=== PATIENT | female | born 1955 | race Caucasian/White ===

== ENCOUNTER 2017-07-15 21:33 | Observation (INO) | payer BC ==
[2017-07-15] MEDS ORDERED: ASPIRIN 81 MG CHEWABLE TABLET PO ONE (22:05)
[2017-07-15] MEDS: NITROGLYCERIN 0.4MG SL TABLET #25 BTL SL PRN ×3 (22:18→22:28)
[2017-07-15 22:28] LABS: BASO % 0.8 % (0-6); EOS % 1.5 % (0-6); GRAN % 53.8 % (47-80); HEMATOCRIT 32.7 % (35.0-47.0); HEMOGLOBIN 10.9 gm/dl (11.6-16.0); LYMPH % 34.1 % (16-45); MEAN CELL VOLUME 101.6 fl (81-97); MEAN CORPUSCULAR HGB CONC 33.3 g/dl (32-36); MEAN PLATELET VOLUME 11.5 fl (7.4-10.4); MONO % 9.8 % (0-9); PLATELET COUNT 276 K/uL (130-400); RED BLOOD COUNT 3.22 M/uL (3.80-5.40); WHITE BLOOD COUNT W/O DIFF 6.6 K/uL (4.2-12.2)
[2017-07-15 22:33] LABS: MEAN CORPUSCULAR HEMOGLOBIN 33.8 pg (27-33)
[2017-07-15 22:46] LABS: ALB/GLOB RATIO 1.5 (1.1-1.8); ALBUMIN 4.2 g/dL (4.0-5.0); ALKALINE PHOSPHATASE 66 U/L (35-104); ALT/SGPT 16 U/L (<33); AST/SGOT 29 U/L (10.0-35.0); BLOOD UREA NITROGEN 24 mg/dL (6-20); CKMB 5.4 ng/mL (<3.77); CREATINE PHOSPHOKINASE 333 U/L (26-192); CREATININE 1.3 mg/dL (0.5-0.9); EST GLOMERULAR FILTRATION RATE 45 mL/min; GLUCOSE,RANDOM 126 mg/dL (74-109)
[2017-07-15 22:49] LABS: TROPONIN I < 0.30 ng/mL (0.00-0.300)
[2017-07-15] MEDS ORDERED: 0.9 % SODIUM CHLORIDE 1,000 ML BAG IV ONE (23:00)
--- NOTE | 2017-07-16 00:52 | Emergency Department Record ---
History of Present Illness - General Chief Complaint: Dizziness Stated Complaint: RUBIO/ BLURRED VISION,HEAYNESS IN CHEST Time Seen by Provider: 07/15/17 21:51 Source: Patient Mode of Arrival: Wheelchair Limitations: No limitations - History of Present Illness Initial Comments: pt mowed her lawn and then came in she house and developed chest heaviness, sob , nausea. she became lightheaded and thought she was going to pass out MD Complaint: Dizziness, Lightheadedness, Near syncope Onset/Timin -: Hour(s) Timing: Sudden onset Description: Difficulty walking, Lightheadedness, Nausea, Off-balance Worsens With: Movement Associated Symptoms: Chest pain, Shortness of breath - Robson Coma Scale Eye Response: (4) Open spontaneously Motor Response: (6) Obeys commands Verbal Response: (5) Oriented Robson Total: 15 - Symptoms of Stroke Symptom Onset Unknown: Yes Symptoms of stroke: Dizziness - Related Data Previous Rx's Medication Instructions Recorded Albuterol Sulfate [Ventolin Hfa] 1 - 2 puff IH Q6HR PRN #1 inhaler 08/01/14 Levofloxacin [Levaquin] 750 mg PO DAILY #10 tablet 08/01/14 Promethazine HCl/Codeine 5 ml PO QHS #120 syrup 08/01/14 [Promethazine-Codeine Syrup] Allergies Allergy/AdvReac Type Severity Reaction Status Date / Time bee pollen Allergy SHORTNESS Verified 07/15/17 21:38 OF BREATH thimerosal Allergy ITCHING Verified 07/15/17 21:38 Travel Screening - Travel/Exposure Within Last 30 Days Have you traveled within the last 30 days?: No - Travel Symptoms Symptom Screening: None Review of Systems Reviewed: No additional complaints except as noted below Constitutional: Reports: As per HPI. Denies: Chills, Fever, Malaise, Night sweats, Weakness, Weight change Eyes: Reports: As per HPI. Denies: Eye discharge, Eye pain, Photophobia, Vision change ENT: Reports: As per HPI. Denies: Congestion, Dental pain, Ear pain, Epistaxis , Hearing loss, Throat pain Respiratory: Reports: As per HPI. Denies: Cough, Dyspnea, Hemoptysis, Stridor, Wheezes Cardiovascular: Reports: As per HPI. Denies: Arrhythmia, Chest pain, Dyspnea on exertion, Edema, Murmurs, Orthopnea, Palpitations, Paroxysmal nocturnal dyspnea, Rheumatic Fever, Syncope Endocrine: Reports: As per HPI. Denies: Fatigue, Heat or cold intolerance, Polydipsia, Polyuria Gastrointestinal: Reports: As per HPI. Denies: Abdominal pain, Constipation, Diarrhea, Hematemesis, Hematochezia, Melena, Nausea, Vomiting Genitourinary: Reports: As per HPI. Denies: Abnormal menses, Discharge, Dyspareunia, Dysuria, Frequency, Hematuria, Incontinence, Retention, Urgency Musculoskeletal: Reports: As per HPI. Denies: Arthralgia, Back pain, Gout, Joint swelling, Myalgia, Neck pain Skin: Reports: As per HPI. Denies: Bruising, Change in color, Change in hair/ nails, Lesions, Pruritus, Rash Neurological: Reports: As per HPI. Denies: Abnormal gait, Confusion, Headache, Numbness, Paresthesias, Seizure, Tingling, Tremors, Vertigo, Weakness Psychiatric: Reports: As per HPI. Denies: Anxiety, Auditory hallucinations, Depression, Homicidal thoughts, Suicidal thoughts, Visual hallucinations Hematological/Lymphatic: Reports: As per HPI. Denies: Anemia, Blood Clots, Easy bleeding, Easy bruising, Swollen glands Past Medical History - SOCIAL HISTORY Smoking Status: Former smoker Drug Use Detail:: Marijuana - RESPIRATORY Hx Respiratory Disorders: No - CARDIOVASCULAR Hx Cardio Disorders: Yes Hx Hypertension: Yes - NEURO Hx Neuro Disorders: Yes Hx Headaches: Yes - GI Hx GI Disorders: Yes Hx Reflux: Yes Hx Irritable Bowel: Yes - Hx Genitourinary Disorders: No - ENDOCRINE Hx Endocrine Disorders: No - MUSCULOSKELETAL Hx Musculoskeletal Disorders: Yes Hx Arthritis: Yes - PSYCH Hx Psych Problems: Yes Hx Depression: Yes - HEMATOLOGY/ONCOLOGY Hx Hematology/Oncology Disorders: No Family Medical History Any Significant Family History?: Yes Family Hx Comment (NOT TO BE USED IN PLACE OF ITEMS BELOW): IBS runs in the family Hx Cancer: Father Hx Seizures: Brother/Sister Physical Exam - General General Appearance: Alert, Oriented x3, Cooperative, Mild distress - Head Head exam: Normal inspection - Eye Eye exam: Normal appearance, PERRL, EOMI Pupils: Normal accommodation - ENT ENT exam: Normal exam, Mucous membranes moist, Normal external ear exam, Normal orophraynx Ear exam: Normal external inspection. negative: External canal tenderness Nasal Exam: Normal inspection. negative: Discharge, Sinus tenderness Mouth exam: Normal external inspection, Tongue normal Teeth exam: Normal inspection. negative: Dental caries Throat exam: Normal inspection. negative: Tonsillar erythema, Tonsillar exudate - Neck Neck exam: Normal inspection, Full ROM. negative: Tenderness - Respiratory Respiratory exam: Normal lung sounds bilaterally. negative: Respiratory distress - Cardiovascular Cardiovascular Exam: Regular rate, Normal rhythm, Normal heart sounds - GI/Abdominal GI/Abdominal exam: Soft, Normal bowel sounds. negative: Tenderness - Rectal Rectal exam: Deferred - exam: Deferred - Extremities Extremities exam: Normal inspection, Full ROM, Normal capillary refill. negative: Tenderness - Back Back exam: Reports: Normal inspection, Full ROM. Denies: Muscle spasm, Rash noted, Tenderness - Neurological Neurological exam: Alert, CN II-XII intact, Normal gait, Oriented X3 - Psychiatric Psychiatric exam: Normal affect, Normal mood - Skin Skin exam: Dry, Intact, Normal color, Warm Course Vital Signs 07/15/17 07/15/17 07/15/17 21:46 22:19 22:24 Temperature 98.0 F Pulse Rate Pulse Rate [ 77 93 H 80 Assistant Case Manager ] Respiratory 22 20 18 Rate Blood Pressure 150/93 [Left Arm] Blood Pressure 141/69 119/79 [Right Arm] Pulse Ox 100 99 94 L 07/15/17 07/15/17 07/15/17 22:25 22:29 23:34 Temperature Pulse Rate 84 Pulse Rate [ 80 74 Assistant Case Manager ] Respiratory 20 20 18 Rate Blood Pressure [Left Arm] Blood Pressure 117/73 130/78 [Right Arm] Pulse Ox 94 L 99 100 - Reevaluation(s) Reevaluation #1: 07/16/17 00:52 pt got better with ntg Medical Decision Making - Lab Data Result diagrams: 07/15/17 21:50 07/15/17 21:50 Lab Results 07/15/17 07/15/17 Range/Units 21:50 21:50 WBC 6.6 (4.2-12.2) K/uL RBC 3.22 L (3.80-5.40) M/uL Hgb 10.9 L (11.6-16.0) gm/dl Hct 32.7 L (35.0-47.0) % MCV 101.6 H (81-97) fl MCH 33.8 H (27-33) pg MCHC 33.3 (32-36) g/dl RDW 13.0 (11.5-14.5) % Plt Count 276 (130-400) K/uL MPV 11.5 H (7.4-10.4) fl Gran % 53.8 (47-80) % Lymphocytes % 34.1 (16-45) % Monocytes % 9.8 H (0-9) % Eosinophils % 1.5 (0-6) % Basophils % 0.8 (0-6) % Sodium 134 L (136-145) mmol/L Potassium 3.8 (3.4-4.5) mmol/L Chloride 96 L (98-107) mmol/L Carbon Dioxide 24.0 (22-29) mmol/L Anion Gap 14.0 (7-16) BUN 24 H (6-20) mg/dL Creatinine 1.3 H (0.5-0.9) mg/dL Estimated GFR 45 mL/min Random Glucose 126 H (74-109) mg/dL Calcium 9.1 (8.6-10.0) mg/dL Total Bilirubin 0.20 (0.2-1.0) mg/dL AST 29 (10.0-35.0) U/L ALT 16 (<33) U/L Alkaline Phosphatase 66 (35-104) U/L Creatine Kinase 333 H (26-192) U/L CK-MB (CK-2) 5.4 H (<3.77) ng/mL Troponin I < 0.30 (0.00-0.300) ng/mL Total Protein 7.0 (6.6-8.7) g/dL Albumin 4.2 (4.0-5.0) g/dL Globulin 2.8 (1.4-4.8) gm/dL Albumin/Globulin Ratio 1.5 (1.1-1.8) Disposition Disposition: Admit Clinical Impression: Chest heaviness Disposition: Still a Patient at [facility] Decision to Admit: Admit from ER Decision to Admit Date: 07/16/17 Decision to Admit Time: 00:53 Forms: Patient Portal Access Quality - Quality Measures Quality Measures: N/A - Blood Pressure Screening Does Patient Have Any of the Following: No Blood Pressure Classification: Pre-Hypertensive BP Reading Systolic Measurement: 130 Diastolic Measurement: 78 Screening for High Blood Pressure: < Pre-Hypertensive BP, F/U Documented > [ G8950] Pre-Hypertensive Follow-up Interventions: Referral to alternative/primary care provider.
[2017-07-16] MEDS ORDERED: ALBUTEROL HFA 8 GM INHALER INH PRN (01:48)
[2017-07-16] MEDS ORDERED: TEMAZEPAM 15 MG CAPSULE PO PRN (01:48)
[2017-07-16] MEDS ORDERED: ACETAMINOPHEN 500 MG TABLET PO PRN (01:48)
[2017-07-16] MEDS ORDERED: NITROGLYCERIN 0.4MG SL TABLET #25 BTL SL PRN (01:48)
[2017-07-16 06:36] LABS: CHOLESTEROL 209 mg/dL (<200); CKMB 3.7 ng/mL (<3.77); HDL CHOLESTEROL 71 mg/dL (40-60); TRIGLYCERIDES 123 mg/dL (<150); VLDL CHOLESTEROL 24 mg/dL (10.00-40.00)
[2017-07-16 06:49] LABS: TROPONIN I < 0.30 ng/mL (0.00-0.300)
[2017-07-16] MEDS ORDERED: PANTOPRAZOLE SODIUM 40 MG TABLET PO SCH (07:00)
--- NOTE | 2017-07-16 07:36 | History & Physical ---
History of Present Illness - Date of Service Date of Service for History & Physical: 07/16/17 - History of Present Illness Admitting Diagnosis: chest heaviness History of Present Illness: Mrs. Joseph is a 61 y/o female who presents with chest tightness after mowing her lawn yesterday afternoon. The patient describes chest pressure, sweating and blurring of vision after taking a shower. She says she sat down for a few minutes and thought that symptoms would go away but when symptoms lasted for more than 20 minutes she became concerned. She denies headache, N/V, syncope or shortness of breath. She denies having previous episodes of chest pain and no history of diabetes, smoking or family history of coronary artery disease. On arrival to the ED the patient was given Nitrostat and symptoms resolved but initial workup was unrevealing for ACS. ECG showed NSR, troponins are negative and she is clinically stable. The patient was admitted to the [facility] for observation on telemetry. Travel Screening - Travel/Exposure Within Last 30 Days Have you traveled within the last 30 days?: No - Travel/Exposure Within Last Year Have you traveled outside the [place] in the last year?: No - Additonal Travel Details Have you been exposed to anyone with a communicable illness?: No - Travel Symptoms Symptom Screening: None Review of Systems Constitutional: Reports: As per HPI. Denies: Chills, Fever, Malaise, Night sweats, Weakness, Weight change Eyes: Reports: As per HPI. Denies: Eye discharge, Eye pain, Photophobia, Vision change ENT: Reports: As per HPI. Denies: Congestion, Dental pain, Ear pain, Epistaxis , Hearing loss, Throat pain Respiratory: Reports: As per HPI. Denies: Cough, Dyspnea, Hemoptysis, Stridor, Wheezes Cardiovascular: Reports: As per HPI. Denies: Arrhythmia, Chest pain, Dyspnea on exertion, Edema, Murmurs, Orthopnea, Palpitations, Paroxysmal nocturnal dyspnea, Rheumatic Fever, Syncope Endocrine: Reports: As per HPI. Denies: Fatigue, Heat or cold intolerance, Polydipsia, Polyuria Gastrointestinal: Reports: As per HPI. Denies: Abdominal pain, Constipation, Diarrhea, Hematemesis, Hematochezia, Melena, Nausea, Vomiting Genitourinary: Reports: As per HPI. Denies: Abnormal menses, Discharge, Dyspareunia, Dysuria, Frequency, Hematuria, Incontinence, Retention, Urgency Musculoskeletal: Reports: As per HPI. Denies: Arthralgia, Back pain, Gout, Joint swelling, Myalgia, Neck pain Skin: Reports: As per HPI. Denies: Bruising, Change in color, Change in hair/ nails, Lesions, Pruritus, Rash Neurological: Reports: As per HPI. Denies: Abnormal gait, Confusion, Headache, Numbness, Paresthesias, Seizure, Tingling, Tremors, Vertigo, Weakness Psychiatric: Reports: As per HPI. Denies: Anxiety, Auditory hallucinations, Depression, Homicidal thoughts, Suicidal thoughts, Visual hallucinations Hematological/Lymphatic: Reports: As per HPI. Denies: Anemia, Blood Clots, Easy bleeding, Easy bruising, Swollen glands Past Medical History - SOCIAL HISTORY Smoking Status: Former smoker Alcohol Use: Occasional Drug Use: Occasional Drug Use Detail:: Marijuana - RESPIRATORY Hx Respiratory Disorders: No Hx Asthma: Yes Hx Bronchitis: Yes Hx COPD: No Hx Dyspnea: No Hx Pneumonia: No Hx Pulmonary Embolism: No Hx Sleep Apnea: No Hx Tuberculosis: No Hx of CPAP: No - CARDIOVASCULAR Hx Cardio Disorders: Yes Hx Hypertension: Yes - NEURO Hx Neuro Disorders: Yes Hx Dizziness: Yes Hx Headaches: Yes - GI Hx GI Disorders: Yes Hx Abdominal Pain: Yes Hx Reflux: Yes Hx Irritable Bowel: Yes - Hx Genitourinary Disorders: No - ENDOCRINE Hx Endocrine Disorders: No Hx Diabetes: No Hx Thyroid Disease: No - MUSCULOSKELETAL Hx Musculoskeletal Disorders: Yes Hx Arthritis: Yes - PSYCH Hx Psych Problems: Yes Hx Anxiety: Yes Hx Depression: Yes - HEMATOLOGY/ONCOLOGY Hx Hematology/Oncology Disorders: No Hx Anemia: Yes Family Medical History Any Significant Family History?: Yes Family Hx Comment (NOT TO BE USED IN PLACE OF ITEMS BELOW): IBS runs in the family Hx Cancer: Father Hx Seizures: Brother/Sister H&P Meds/Allergies - Allergies Allergies: Allergies Allergy/AdvReac Type Severity Reaction Status Date / Time bee pollen Allergy SHORTNESS Verified 07/15/17 21:38 OF BREATH thimerosal Allergy ITCHING Verified 07/15/17 21:38 - Home Medications Previous Rx's Medication Instructions Recorded Albuterol Sulfate [Ventolin Hfa] 1 - 2 puff IH Q6HR PRN #1 inhaler 08/01/14 - Active Medications Active Medications: Current Medications Acetaminophen (Tylenol 500mg Tab) 1,000 mg PO Q6H PRN PRN Reason: PAIN/TEMP Albuterol Sulfate (Ventolin Hfa) 1 puff INH Q6HR PRN PRN Reason: WHEEZING Aspirin (Ecotrin (Ec)) 325 mg PO DAILY [facility] Metoprolol Tartrate (Lopressor) 50 mg PO DAILY [facility] Nitroglycerin (Nitrostat 0.4mg) 0.4 mg SL Q5MIN PRN PRN Reason: CHEST PAIN Non-Formulary Medication (Diclofenac Sodium [Voltaren-Xr]) 100 mg PO DAILY [facility] Admin: 07/16/17 07:04 Dose: 40 mg Temazepam (Restoril) 15 mg PO QHS PRN PRN Reason: INSOMNIA Venlafaxine HCl (Effexor Xr) 150 mg PO DAILY [facility] Physical Exam - Vital Signs Vital Signs: Vital Signs - Last 24 Hrs Temp Pulse Resp BP Pulse Ox 07/16/17 05:30 98.0 F 66 16 121/71 97 07/16/17 01:31 98.2 F 76 18 127/72 100 07/16/17 01:30 97.8 F 68 18 121/77 100 - General General Appearance: Alert, Oriented x3, Cooperative, Mild distress Limitations: No limitations - Head Head exam: Normal inspection - Eye Eye exam: Normal appearance, PERRL, EOMI Pupils: Normal accommodation - ENT ENT exam: Normal exam, Mucous membranes moist, Normal external ear exam, Normal orophraynx Ear exam: Normal external inspection. negative: External canal tenderness Nasal Exam: Normal inspection. negative: Discharge, Sinus tenderness Mouth exam: Normal external inspection, Tongue normal Teeth exam: Normal inspection. negative: Dental caries Throat exam: Normal inspection. negative: Tonsillar erythema, Tonsillar exudate - Neck Neck exam: Normal inspection, Full ROM. negative: Tenderness - Respiratory Respiratory exam: Normal lung sounds bilaterally. negative: Respiratory distress, Wheezes - Cardiovascular Cardiovascular Exam: Regular rate, Normal rhythm, Normal heart sounds. negative : Rubs, Systolic murmur, Tachycardia Peripheral Pulses: 3+: Radial (R), Radial (L), Dorsalis Pedis (R), Dorsalis Pedis (L) - GI/Abdominal GI/Abdominal exam: Soft, Normal bowel sounds. negative: Tenderness - Rectal Rectal exam: Deferred - exam: Deferred - Extremities Extremities exam: Normal inspection, Full ROM, Normal capillary refill. negative: Tenderness - Back Back exam: Reports: Normal inspection, Full ROM. Denies: Muscle spasm, Rash noted, Tenderness - Neurological Neurological exam: Alert, CN II-XII intact, Normal gait, Oriented X3 - Psychiatric Psychiatric exam: Normal affect, Normal mood - Skin Skin exam: Dry, Intact, Normal color, Warm Results - Labs Result Diagrams: 07/15/17 21:50 07/15/17 21:50 Labs Last 24 Hours: Laboratory Results - last 24 hr 07/16/17 07/16/17 01:48 05:55 CK-MB (CK-2) 3.7 Troponin I < 0.30 Triglycerides Cancelled 123 Cholesterol Cancelled 209 H LDL Cholesterol Measurd Cancelled 134.0 H VLDL Cholesterol Cancelled 24 HDL Cholesterol Cancelled 71 H VTE H&P Assessment - Risk for VTE Risk for VTE: No Risk Level: Very Low Risk Assessment Date: 07/16/17 Risk Assessment Time: 11:28 VTE Orders Placed or Will Be Placed: No VTE Reason for No Prophylaxis: Not Indicated AMI H&P Plan - AMI AMI Reason For No Statins Ordered: Not Indicated Plan - Detailed Diagnosis and Plan (1) Atypical chest pain Plan: - ECG reviewed and no indication of acute ACS, no ST-T wave abnormalities, Qtc 444 - troponins x 3 ordered, 2 negative thus far and the third pending. 1/5 CAD risk factors present, MAINE score 0 - Nitrostat 0.4mg sublingual ordered PRN, ASA 325mg, telemetry monitoring, vitals Q8H Current Visit: Yes Status: Acute Base Code: R07.89 - OTHER CHEST PAIN (2) Depression Plan: - patient on Effexor QD, we will resume. - describes increased stressors and anxiety at work in recent weeks which could be a precipitating factor for her presenting symptoms. Current Visit: Yes Status: Acute Base Code: F32.9 - MAJOR DEPRESSIVE DISORDER, SINGLE EPISODE, UNSPECIFIED (3) Hypertension Plan: - patient is currently 121/71 - on Metoprolol 50mg daily, will resume home dose. Current Visit: Yes Status: Acute Base Code: I10 - ESSENTIAL (PRIMARY) HYPERTENSION (4) Full code status Current Visit: Yes Status: Acute Base Code: Z78.9 - OTHER SPECIFIED HEALTH STATUS (5) Fibromyalgia Plan: - recent diagnosis of fibromyalgia, with symptoms of shoulder/hip/knee pains. - recently started Lyrica by her PCP. Will hold for now. Current Visit: Yes Status: Acute Base Code: M79.7 - FIBROMYALGIA - Disposition The patient is clinically stable with no indication of ACS or UA based on MAINE scoring. We will discharge the patient with instruction to follow up with her PCP in [place] within the week. Patient has low pre-test probability of CAD so stress test would likely be unrevealing.
[2017-07-16] MEDS ORDERED: METOPROLOL TART 25 MG TABLET PO SCH (10:00)
[2017-07-16] MEDS ORDERED: ASPIRIN 325 MG TAB ENTERIC-COATED PO SCH (10:00)
[2017-07-16] MEDS ORDERED: DICLOFENAC SODIUM 100 MG PO SCH (10:00)
[2017-07-16] MEDS ORDERED: VENLAFAXINE ER 75 MG CAPSULE PO SCH (10:00)
--- NOTE | 2017-07-16 11:22 | Discharge Summary ---
Providers Discharge Summary Date: 07/16/17 Date of admission: 07/16/17 01:07 Attending physician: NGUYEN RAMIREZ Physical Exam - Vital Signs Vital Signs: Vital Signs - Last 24 Hrs Temp Pulse Resp BP Pulse Ox 07/16/17 09:00 98.7 F 18 117/74 98 07/16/17 08:33 16 07/16/17 05:30 98.0 F 66 16 121/71 97 07/16/17 01:31 98.2 F 76 18 127/72 100 07/16/17 01:30 97.8 F 68 18 121/77 100 - General General Appearance: Alert, Oriented x3, Cooperative, Mild distress Limitations: No limitations - Head Head exam: Normal inspection - Eye Eye exam: Normal appearance, PERRL, EOMI Pupils: Normal accommodation - ENT ENT exam: Normal exam, Mucous membranes moist, Normal external ear exam, Normal orophraynx Ear exam: Normal external inspection. negative: External canal tenderness Nasal Exam: Normal inspection. negative: Discharge, Sinus tenderness Mouth exam: Normal external inspection, Tongue normal Teeth exam: Normal inspection. negative: Dental caries Throat exam: Normal inspection. negative: Tonsillar erythema, Tonsillar exudate - Neck Neck exam: Normal inspection, Full ROM. negative: Tenderness - Respiratory Respiratory exam: Normal lung sounds bilaterally. negative: Respiratory distress - Cardiovascular Cardiovascular Exam: Regular rate, Normal rhythm, Normal heart sounds - GI/Abdominal GI/Abdominal exam: Soft, Normal bowel sounds. negative: Tenderness - Rectal Rectal exam: Deferred - exam: Deferred - Extremities Extremities exam: Normal inspection, Full ROM, Normal capillary refill. negative: Tenderness - Back Back exam: Reports: Normal inspection, Full ROM. Denies: Muscle spasm, Rash noted, Tenderness - Neurological Neurological exam: Alert, CN II-XII intact, Normal gait, Oriented X3 - Psychiatric Psychiatric exam: Normal affect, Normal mood - Skin Skin exam: Dry, Intact, Normal color, Warm Hospitalization - Hospitalization Admission Diagnosis: chest heaviness - Problem List/Discharge Diagnosis (1) Atypical chest pain Plan: - ECG reviewed and no indication of acute ACS, no ST-T wave abnormalities, Qtc 444 - troponins x 3 ordered, 2 negative thus far and the third pending. 1/5 CAD risk factors present, MAINE score 0 - Nitrostat 0.4mg sublingual ordered PRN, ASA 325mg, telemetry monitoring, vitals Q8H Current Visit: Yes Status: Acute Base Code: R07.89 - OTHER CHEST PAIN (2) Depression Plan: - patient on Effexor QD, we will resume. - describes increased stressors and anxiety at work in recent weeks which could be a precipitating factor for her presenting symptoms. Current Visit: Yes Status: Acute Base Code: F32.9 - MAJOR DEPRESSIVE DISORDER, SINGLE EPISODE, UNSPECIFIED (3) Hypertension Plan: - patient is currently 121/71 - on Metoprolol 50mg daily, will resume home dose. Current Visit: Yes Status: Acute Base Code: I10 - ESSENTIAL (PRIMARY) HYPERTENSION - Hospitalization Course Hospital Course: As per per patient's HPI. The patient was observed overnight and there have been no new symptoms and telemetry monitoring shows a normal sinus rhythm. Abnormal Labs: Abnormal Lab Results 07/16/17 Range/Units 05:55 Cholesterol 209 H (<200) mg/dL LDL Cholesterol Measurd 134.0 H (0-100) mg/dL HDL Cholesterol 71 H (40-60) mg/dL VTE Discharge VTE Reason For No Overlap Therapy: Not Indicated Discharge Medications - Discharge Medications Home Medications: Ambulatory Orders Albuterol Sulfate [Ventolin Hfa] 1 - 2 puff IH Q6HR PRN #1 inhaler 08/01/14 [ Last Taken Unknown] Diclofenac Sodium [Voltaren-Xr] 100 mg PO DAILY 08/01/14 [Last Taken Unknown] Metoprolol Tartrate [Metoprolol Tartrate] 50 mg PO DAILY 08/01/14 [Last Taken Unknown] Pantoprazole Sodium [Protonix] 40 mg PO DAILY 08/01/14 [Last Taken Unknown] Venlafaxine HCl [Effexor Xr] 150 mg PO DAILY 08/01/14 [Last Taken Unknown] Discharge Plan - Discharge Instructions Activity at Discharge: Resume Usual Activities As Tolerated Diet at Discharge: Regular Diet Instructions: Chest Pain (DC) Additional Instructions: Follow up with your doctor this week. Resume home meds. Diet and activity as tolerated Return to the ED if having chestpain with light headedness, nausea. Quality Measures - Quality Measures Quality Measures: Documentation of Current Medications in Medical Record, Screening for High Blood Pressure and F/U Documented - Current Medications Quality Measure: Measure #130: Documentation of Current Medications Documentation of Current Medications: <Current Medications Documented/Reviewed> [G8427] - Blood Pressure Screening Quality Measure: Screening for High Blood Pressure and Follow-Up Documented Does Patient Have Any of the Following: Active Dx of HTN Blood Pressure Classification: Normal BP Reading Systolic Measurement: 117 Diastolic Measurement: 74 Screening for High Blood Pressure: Patient Exclusion, Hx of HTN [G9744] - Elder Abuse Suspicion Index EASI Reference Information: Sean RUIZ, Jaimee C, Xavi D, Vanessa Corral.Development and validation of a tool to assist physicians identification of elder abuse: The Elder Abuse Suspicion Index (EASI ). Journal of Elder Abuse and Neglect, 2008; 20 (3): 276-300.
--- NOTE | 2017-07-17 07:46 | RADIOLOGY REPORT ---
EXAM: CHEST, TWO VIEWS HISTORY: ACUTE SHORTNESS OF BREATH. TECHNIQUE: Two views of the chest were obtained. Comparison: Chest x-ray 10/05/13. FINDINGS: The lungs are hyperinflated although otherwise clear. The cardiac silhouette, diaphragm, and osseous structures are unremarkable. IMPRESSION: SLIGHT HYPERINFLATION OF THE LUNGS. NO ACUTE PROCESS. JOB NUMBER: [id number] MTDD
== END 2017-07-16 11:35 | disposition home or self-care (01) ==
LOC: ER 21:33 → MEDSURG 07-16 01:07
PROVIDERS: ADMIT Internal Medicine; ATTEND Internal Medicine
DX: R07.89 Other chest pain (principal); Z87.891 Personal history of nicotine dependence; I10 Essential (primary) hypertension; M79.7 Fibromyalgia
CPT/HCPCS: 99285 ×2; 96360; 82550; 85025; 82553 ×2; 84484 ×2; 80053; 80061; 71020; 93005 ×2; 93010; G0378; 99236; J7030